=== PATIENT | female | born 1950 | race Caucasian/White ===

== ENCOUNTER 2021-11-08 05:35 | Day surgery (SDC) | payer OTHER ==
[~2021-11-08] VITALS: Ht 165.1 cm; Wt 74.8 kg
[2021-11-08] MEDS ORDERED: ONDANSETRON HCL 4 MG/2 ML VIAL IVP PRN (09:45)
[2021-11-08] MEDS ORDERED: HYDROcodone/ACETAMIN 5-325 MG TAB (NORCO/ VICODIN) PO PRN (09:45)
[2021-11-08] MEDS ORDERED: OXYCODONE/ACETAMINOPHEN 5-325 TABLET PO PRN ×2 (09:45)
[2021-11-08] MEDS ORDERED: NS 1000 ML IV.SOLN IV ONE (09:48)
[2021-11-08] MEDS ORDERED: KETOROLAC TROMETHAMINE 30 MG VIAL ONE (09:48)
[2021-11-08] MEDS ORDERED: ROCURONIUM BROMIDE 10 MG/ML (ZEMURON) ONE (09:48)
[2021-11-08] MEDS ORDERED: PROPOFOL 200MG/ 20ML VIAL (DIPRIVAN) IV ONE (09:48)
[2021-11-08] MEDS ORDERED: NS IRRIG SOLN 1000 ML IR ONE (09:48)
[2021-11-08] MEDS ORDERED: BUPIVACAINE /EPINEPHRINE/PF 0.25% 30 ML VIAL INJ ONE (09:48)
[2021-11-08] MEDS ORDERED: ATROPINE SULFATE 0.4 MG/ML VIAL ONE (09:48)
[2021-11-08] MEDS ORDERED: LR 1,000 ML IV.SOLN IV ONE (09:48)
[2021-11-08] MEDS ORDERED: ONDANSETRON HCL 4 MG/2 ML VIAL ONE (09:48)
[2021-11-08] MEDS ORDERED: PHENYLEPHRINE HCL 10 MG/ML VIAL (NEOSYNEPHRINE) ONE (09:48)
[2021-11-08] MEDS ORDERED: CEFAZOLIN 2 GM IVPB PREMIX 50 ML IV ONE (09:48)
[2021-11-08] MEDS ORDERED: fentaNYL CITRATE/PF 100 MCG/2 ML AMP ONE (09:48)
[2021-11-08] MEDS ORDERED: SEVOFLURANE 15 MIN GAS INH ONE (09:48)
[2021-11-08] MEDS ORDERED: GLYCOPYRROLATE 0.2 MG/ML VIAL ONE (09:48)
[2021-11-08] MEDS ORDERED: HYDROmorphone 1 MG/ML INJ. CARTRIDGE IVP PRN (10:00)
[2021-11-08] MEDS ORDERED: hydrALAZINE HCL 20 MG/ML VIAL IVP PRN (10:00)
[2021-11-08] MEDS ORDERED: LR 1,000 ML IV SCH (10:00)
[2021-11-08] MEDS ORDERED: METOCLOPRAMIDE HCL 10 MG/2 ML VIAL IVP ONE (10:00)
[2021-11-08] MEDS ORDERED: LABETALOL 100 MG/ 20ML VIAL IVP PRN (10:00)
[2021-11-08 12:05] VITALS: BP_SYST 107
[2021-11-08] MEDS ORDERED: SIMETHICONE 80 MG TAB.CHEW PO SCH (13:00)
== END 2021-11-08 13:25 | disposition home or self-care (01) ==
LOC: SDS 05:35 → SMU 05:35 → SDS 13:25
PROVIDERS: ATTEND Specialist
DX: N83.202 Unspecified ovarian cyst, left side (principal); N83.201 Unspecified ovarian cyst, right side; N35.92 Unspecified urethral stricture, female; N39.46 Mixed incontinence; N37 Urethral disorders in diseases classified elsewhere; I10 Essential (primary) hypertension; E03.9 Hypothyroidism, unspecified; Z79.899 Other long term (current) drug therapy; Z20.822 Contact with and (suspected) exposure to COVID-19
CPT/HCPCS: 36415 ×2; 52281; 58661; 87426; 87635; 88108; 88305; C1727; C1782; J0461; J0690; J1885; J2370; J2405; J2704; J3010; J3490 ×2; J7030; J7120